=== PATIENT | female | born 1990 | race Caucasian/White ===

== ENCOUNTER → 2018-12-23 | Emergency (ER) | payer MEDICAID ==
[~2018-12-23] VITALS: Ht 167.6 cm; Wt 63.6 kg
[~2018-12-23] MED LIST: ALBU6.7H3 IH; DICY10CA88 PO; HYDR-4383 PO; IMO2C PO; MECL-69 PO; NEOM10SO7 OT; ONDA8TAB9 PO; ZOF4T PO; dexamethasone sod phosphate 10mg/ml inj IV STA; diphenhydrAMINE 50 mg/ml inj IV ONE; ketorolac tromethamine 15mg/ml inj. IV ONE; normal saline 1000ML IV soln IVB ONE; proCHLORperazine 10 MG/2 ml inj IV ONE
--- NOTE | 2018-12-24 00:45 | NUR ---
PT REQUESTS DOOR BE CLOSED AND QUIET, CLOSED DOORS
[2018-12-24 01:05] VITALS: BP 115/65
--- NOTE | 2018-12-24 01:10 | NUR ---
PT IV OBTAINED, MEDICATIONS GIVEN, PT REQUESTS BLANKET,OBTAINED FOR HER
--- NOTE | 2018-12-24 02:13 | NUR ---
PT STATES SHE IS FEELING BETTER, BUT FEELS TIRED, WILL DC PT HOME PER MD ORDER
== END | disposition home or self-care (01) ==
LOC: ER 23:10
DX: G43.909 Migraine, unspecified, not intractable, without status migrainosus (principal); R11.2 Nausea with vomiting, unspecified; J45.909 Unspecified asthma, uncomplicated; F41.9 Anxiety disorder, unspecified; Z88.0 Allergy status to penicillin; Z88.5 Allergy status to narcotic agent; Z79.2 Long term (current) use of antibiotics; Z79.899 Other long term (current) drug therapy
CPT/HCPCS: 96361; 96374; 96375; 99283; J0780; J1100; J1200; J1885; J7030

== ENCOUNTER 2019-09-30 11:56 | Emergency (ER) | payer MEDICAID ==
[~2019-09-30] VITALS: Ht 152.4 cm; Wt 72.0 kg
[~2019-09-30 11:56] MED LIST changes: -dexamethasone sod phosphate 10mg/ml inj IV STA; -diphenhydrAMINE 50 mg/ml inj IV ONE; -ketorolac tromethamine 15mg/ml inj. IV ONE; -normal saline 1000ML IV soln IVB ONE; -proCHLORperazine 10 MG/2 ml inj IV ONE
[2019-09-30] MEDS ORDERED: ondansetron 4mg rapidly disintigrating tab PO ONE (12:15)
[2019-09-30] MEDS ORDERED: ketorolac trometh inj. 60 MG/2 ML VIAL IM ONE (12:15)
[2019-09-30 12:32] LABS: BASOPHILS % (AUTO) 0.6 % (0-1); EOSINOPHILS # (AUTO) 0.3 X10'3 (0-0.9); HEMATOCRIT 44.5 % (35.0-45.0); HEMOGLOBIN 15.1 g/dl (12.0-16.0); LYMPHOCYTES # (AUTO) 2.9 X10'3 (1.1-4.8); LYMPHOCYTES % (AUTO) 42.7 % (21-51); MEAN CORPUSCULAR HEMOGLOBIN 29.2 PG (27.0-31.0); MEAN CORPUSCULAR VOLUME 86.1 FL (78-98); MEAN PLATELET VOLUME 7.8 FL (7.4-10.4); MONOCYTES # (AUTO) 0.7 X10'3 (0-0.9); MONOCYTES % (AUTO) 10.6 % (2-12); NEUTROPHILS # (AUTO) 2.8 X10'3 (1.8-7.7); NEUTROPHILS % (AUTO) 41.1 % (42-75); PLATELET COUNT 291 X10'3 (140-440); RED BLOOD COUNT 5.17 X10'6 (4.20-5.60); RED CELL DISTRIBUTION WIDTH 13.1 % (11.5-14.5); WHITE BLOOD COUNT 6.8 X10'3 (4.5-11.0)
[2019-09-30 12:33] LABS: CLARITY,URINE SLIGHTLY CLOUDY (Clear); COLOR,URINE YELLOW (Yellow); GLUCOSE, URINE NEGATIVE (Neg); KETONES,URINE NEGATIVE (Neg); LEUKOCYTE ESTERASE ,URINE SMALL (Neg); NITRITES, URINE NEGATIVE (Neg); OCCULT BLOOD,URINE NEGATIVE (Neg); PROTEIN,URINE NEGATIVE (Neg); UROBILINOGEN,URINE 0.2 E.U/dL (0.2-1.0)
[2019-09-30 12:34] LABS: URINE HCG NEGATIVE (NEG)
[2019-09-30 12:35] LABS: UA COLLECTION TYPE CLN CATCH MIDSTREAM
[2019-09-30 12:39] LABS: BACTERIA,URINE 1+ /HPF (Neg); MUCUS STRANDS NONE SEEN /LPF (Neg); RBC,URINE 0-2 /HPF (0-2); SQUAMOUS EPITHELIAL CELL,UR MANY /LPF (FEW)
[2019-09-30 12:48] LABS: ALANINE AMINOTRANSFERASE 24 U/L (12-78); ALBUMIN 3.8 G/DL (3.4-5.0); ALBUMIN/GLOBULIN RATIO 1.2 (1.1-1.5); ALKALINE PHOSPHATASE 65 IU/L (46-116); ANION GAP 10 (8-16); ASPARTATE AMINO TRANSFERASE 19 U/L (10-37); BILIRUBIN,TOTAL 0.3 MG/DL (0.1-1.0); BLOOD UREA NITROGEN 14 MG/DL (7-18); BUN/CREATININE RATIO 15.2 (6.6-38.0); CALCIUM 8.6 MG/DL (8.5-10.1); CHLORIDE 106 MMOL/L (99-107); CREATININE 0.92 MG/DL (0.40-0.90); GLUCOSE 78 MG/DL (70-104); LIPASE 87 U/L (73-393); POTASSIUM 4.4 MMOL/L (3.5-5.1); SODIUM 139 MMOL/L (135-145); TOTAL CARBON DIOXIDE 23.5 MMOL/L (24-32); eGFR 73 ML/MIN
--- NOTE | 2019-09-30 12:53 | NUR ---
Pt ambulatory to the restroom with minimal assistance. Pt reports she is dizzy, has stable vitals. Pt's urine was rejected for culture by the lab. New specimen obtained in case it is needed.
[2019-09-30 13:30] VITALS: BP 123/77
[2019-09-30] MEDS ORDERED: HYDR-3965 PO (14:14)
== END 2019-09-30 14:32 | disposition home or self-care (01) ==
LOC: ER 11:57
DX: N83.201 Unspecified ovarian cyst, right side (principal); F41.9 Anxiety disorder, unspecified; J45.909 Unspecified asthma, uncomplicated; Z72.89 Other problems related to lifestyle; Z88.0 Allergy status to penicillin; Z88.5 Allergy status to narcotic agent; Z79.899 Other long term (current) drug therapy
CPT/HCPCS: 36415; 76830; 76856; 80053; 81001; 81025; 83690; 85025; 96372; 99284; J1885

== ENCOUNTER 2020-11-12 00:12 | Emergency (ER) | payer MEDICAID ==
[~2020-11-12] VITALS: Ht 152.4 cm; Wt 70.0 kg
[2020-11-12 00:44] VITALS: BP 118/67
== END 2020-11-12 04:02 | disposition left against medical advice (07) ==
LOC: ER 00:13
DX: G43.909 Migraine, unspecified, not intractable, without status migrainosus (principal); Z53.21 Procedure and treatment not carried out due to patient leaving prior to being seen by health care provider